=== PATIENT | male | born 2005 | race American Indian/Alaskan Native ===

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

== ENCOUNTER 2024-04-02 01:32 | Emergency (ER) | payer MEDICAID, OTHER ==
[~2024-04-02] VITALS: Ht 177.8 cm; Wt 59.1 kg
[2024-04-02 01:57] VITALS: BP 101/74; PULSE 96; RESP 16; TEMP 97.8; O2SAT 98
== END 2024-04-02 02:46 ==
LOC: ER 01:32
DX: Z02.89 Encounter for other administrative examinations (principal); M25.562 Pain in left knee; F17.200 Nicotine dependence, unspecified, uncomplicated; V89.2XXA Person injured in unspecified motor-vehicle accident, traffic, initial encounter; Y92.410 Unspecified street and highway as the place of occurrence of the external cause; Y92.89 Other specified places as the place of occurrence of the external cause; Y99.8 Other external cause status
CPT/HCPCS: 99283

== ENCOUNTER 2025-01-01 07:49 | Emergency (ER) | payer SELFPAY ==
[~2025-01-01] VITALS: Ht 332.7 cm; Wt 54.5 kg
--- NOTE | 2025-01-01 08:12 | Physician Documentation ---
History of Present Illness ~ Chief Complaint: 5150 Stated Complaint: 5150 Time Seen by MD: 07:53 Primary Medical Doctor: NONE HPI 19-year-old male presenting with suicidal ideations. Patient states that he has had suicidal thoughts for the past year but it has become extremely worse for the past couple of days. He states that he really needs to talk to somebody and wants help. He reports that his plan would be to maybe slit his own throat or his wrists. No other complaints. 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 CONST: Well developed and well nourished. In no acute distress HENT: Head Atraumatic EYES: Pupils are equal, round and reactive to light. Normal conjunctiva NECK: Normal range of motion. Supple. CARDIO: Normal rate and regular rhythm. No murmurs, rubs, or gallops. S1, S2. PULM/CHEST: No respiratory distress. Lungs clear to auscultation. No wheeze ABD: Soft and nontender. Nondistended. Bowel sounds normal. No guarding. : Exam deferred MSK: No edema. No deformity. NEURO: Alert and oriented to person, place and time. Moving all extremities SKIN: Warm and dry. PSYCH: Depressed and anxious mood. Endorses suicidal ideations with plan. Progress Results/Orders Results/Orders Orders - PIEDAD MURCIA MD Med Rec (01/01/25 07:52) Close Observation Level (01/01/25 07:52) Covid19 Binax Poc Result Entry (01/01/25 07:52) 1799.11 (01/01/25 ) General Nursing Order (01/01/25 ) Chlam/Gc Amp Ur (01/02/25 00:00) Hand, Complete (3vw Min) (01/02/25 08:22) Completed Orders - PIEDAD MURCIA MD Cbc/Diff (01/01/25 07:52) Drug Screen, Urine (01/01/25 07:52) Ethanol (01/01/25 07:52) TSH (01/01/25 07:52) BMP (01/01/25 07:52) Regular Diet (01/01/25 Lunch) Ua With Microscopic (01/01/25 08:12) Potassium Cl Sr Tablet (K-Dur Tablet) (01/01/25 11:08) Cult Urine + [place] Ct (01/01/25 11:09) Ethanol (01/01/25 12:47) Ibuprofen Tablet (Motrin Tablet) (01/01/25 16:05) Hand, Complete (3vw Min) (01/02/25 08:22) Vital Signs 01/01/25 01/01/25 01/02/25 01/02/25 07:51 11:19 00:53 06:07 Temp 98.0 98.2 Pulse 135 67 Resp 16 16 16 B/P (MAP) 132/88 121/59 (79) Pulse Ox 98 98 O2 Flow Rate 0 01/02/25 01/02/25 01/02/25 01/02/25 07:55 19:03 19:10 20:04 Temp 97.7 97.7 Pulse 76 76 Resp 16 12 12 12 B/P (MAP) 116/70 (85) 116/70 Pulse Ox 98 98 Laboratory Tests Test 01/01/25 07:54 01/01/25 08:12 01/01/25 08:33 01/01/25 13:06 SARS-CoV-2 Antigen (Rapid) Negative Urine Specimen Description Cln catch midstream Urine Color Yellow Urine Clarity Clear Urine pH 6.0 Urine Specific Gordon 1.020 Urine Protein Negative Urine Glucose (UA) Negative Urine Ketones Trace H Urine Occult Blood Trace-intact Urine Nitrite Negative Urine Bilirubin Negative Urine Urobilinogen 0.2 Urine Leukocyte Esterase Moderate H Urine RBC 0-2 Urine WBC 30-50 H Urine Squamous Epithelial Cells None seen Urine Bacteria Few Urine Mucus None seen Volume Urine Centrifuged 4 ml Urine Comment Low volume Urine Opiates Screen Negative Urine Methadone Screen Negative Urine Fentanyl Screen Negative Urine Barbiturates Screen Negative Urine Phencyclidine Screen Negative Urine Amphetamines Screen Negative Urine Benzodiazepines Screen Negative Urine Cocaine Screen Negative Urine Cannabinoids Screen Negative Drug Screen Comment White Blood Count 9.1 Red Blood Count 4.86 Hemoglobin 14.9 Hematocrit 42.9 Mean Corpuscular Volume 88.3 Mean Corpuscular Hemoglobin 30.7 Mean Corpuscular Hemoglobin Concent 34.8 Red Cell Distribution Width 14.1 Platelet Count 236 Mean Platelet Volume 9.1 Neutrophils (%) (Auto) 75.5 H Lymphocytes (%) (Auto) 18.4 L Monocytes (%) (Auto) 5.6 Eosinophils (%) (Auto) 0.2 Basophils (%) (Auto) 0.3 Neutrophils # (Auto) 6.9 Lymphocytes # (Auto) 1.7 Monocytes # (Auto) 0.5 Eosinophils # (Auto) 0.0 Basophils # (Auto) 0.0 CBC Comment Sodium Level 140 Potassium Level 3.2 L Chloride Level 105 Carbon Dioxide Level 21.6 L Anion Gap 13 Blood Urea Nitrogen 7 Creatinine 0.74 Estimated GFR/1.73 m2 > 90 BUN/Creatinine Ratio 9.5 L Glucose Level 101 Calcium Level 8.4 L Albumin 4.3 Thyroid Stimulating Hormone (TSH) 1.88 Chemistry Comments Ethyl Alcohol Level 154 H 90 H Test 01/02/25 00:00 Microbiology Date/Time Source Procedure Growth Status 01/01/25 08:12 Urine Clean Catch Midstream Urine Culture - Final MIXED ADAN ISOLATED.... Complete EKG/XRAY/CT/US/VASC/MRI Bone/Soft Tissue X-Ray (Ext.) : Additional Comment Indication: Left hand pain Technique: DI HAND, COMPLETE (3VW MIN)HAND 3VW Comparison: None FINDINGS/IMPRESSION: No radiographic evidence for acute fracture or dislocation. No significant soft tissue edema. No radiopaque foreign body. Old ulnar styloid fracture. Old fracture fragment at the base of the 5th proximal phalanx measuring 2 mm Medical Decision Making Differential Diagnosis This is a 19-year-old male presenting with suicidal ideations. The patient was slightly intoxicated with an elevated EtOH of 154. He was observed and on repeat his ETOH improved to less than 100. Additionally he did have some leukocyte esterase and WBCs present on his urinalysis but he is not having any urinary symptoms at this time. I did order a GC/chlamydia test as well as a urine culture to follow this up. In the meantime however he is medically cleared. He is now clinically sober and medically cleared for psychiatric evaluation. 01/02/25: I took over care once again of this patient the following day. The patient is a waiting placement to the mental health unit. He did report some pain in his left hand and thus we ordered an x-ray to rule out fracture in the x-ray was negative. He remained otherwise stable throughout my shift. Departure Disposition: 30 STILL A PATIENT Impression: Primary Impression: Suicidal ideation Referrals: NO PRIMARY CARE PROVIDER (PCP) Signature Scribe Signature: 1 Attestation: 1 PIEDAD MURCIA MD Jan 01, 2025 08:12
[2025-01-01 08:31] LABS: LEUKOCYTE ESTERASE ,URINE MODERATE (Neg); NITRITES, URINE NEGATIVE (Neg); OCCULT BLOOD,URINE TRACE-INTACT (Neg)
[2025-01-01 08:35] LABS: UA COLLECTION TYPE CLN CATCH MIDSTREAM
[2025-01-01 08:36] LABS: MUCUS STRANDS NONE SEEN /LPF (Neg); SQUAMOUS EPITHELIAL CELL,UR NONE SEEN /LPF (FEW)
[2025-01-01 08:42] LABS: URINE AMPHETAMINE SCREEN NEGATIVE (Neg); URINE BARBITUATE SCREEN NEGATIVE (Neg); URINE BENZODIAZEPINES SCREEN NEGATIVE (Neg); URINE CANNABINOID SCREEN NEGATIVE (Neg); URINE COCAINE SCREEN NEGATIVE (Neg); URINE METHADONE SCREEN NEGATIVE (Neg); URINE OPIATE SCREEN NEGATIVE (Neg); URINE PHENCYCLIDINE SCREEN NEGATIVE (Neg)
[2025-01-01 08:44] LABS: MEAN PLATELET VOLUME 9.1 FL (7.4-10.4); RED CELL DISTRIBUTION WIDTH 14.1 % (11.5-14.5)
[2025-01-01 09:06] LABS: CREATININE 0.74 MG/DL (0.60-1.10); ETHANOL 154 MG/DL (<10); TOTAL CARBON DIOXIDE 21.6 MMOL/L (24-32); eCRCL 122 ML/MIN; eGFR > 90 ML/MIN
[2025-01-01] MEDS: potassium Cl 20 mEq SR tablet PO STA (11:15)
[2025-01-01] MEDS: ibuprofen tablet 400 MG TABLET PO ONE (16:13)
--- NOTE | 2025-01-02 08:47 | RADIOLOGY REPORT ---
Indication: Left hand pain Technique: DI HAND, COMPLETE (3VW MIN)HAND 3VW Comparison: None FINDINGS/IMPRESSION: No radiographic evidence for acute fracture or dislocation. No significant soft tissue edema. No rad iopaque foreign body. Old ulnar styloid fracture. Old fracture fragment at the base of the 5th proximal phalanx measuring 2 mm
[2025-01-02 20:04] VITALS: BP 116/70; PULSE 76; RESP 12; TEMP 97.7; O2SAT 98
== END 2025-01-02 20:11 ==
LOC: ER 07:49
DX: R45.851 Suicidal ideations (principal); M79.642 Pain in left hand; Z79.899 Other long term (current) drug therapy; Z20.822 Contact with and (suspected) exposure to COVID-19
CPT/HCPCS: 36415; 73130; 80048; 80305; 80320; 81001; 84443; 85025; 87088; 87491; 87811; 99285

== ENCOUNTER 2025-02-09 05:19 | Emergency (ER) | payer OTHER ==
[~2025-02-09] VITALS: Ht 170.2 cm; Wt 55.0 kg
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
--- NOTE | 2025-02-09 05:59 | ELECTROCARDIOGRAPH REPORT ---
[facility] Test Date: 2025-02-09 Test Time: 05:57:37 Pat Name: FREDDIE RAMIREZ Department: [facility]- Patient ID: [facility]-[id number] Room: Gender: M [employer]: : 2005 Requested By: MINDA TATE Order Number: [id number] Reading MD: Measurements Intervals Mcdonough Rate: 105 P: 77 NV: 126 QRS: 78 QRSD: 81 T: 54 QT: 301 QTc: 398 Interpretive Statements Sinus tachycardia Probable left atrial enlargement RSR' in V1 or V2, probably normal variant Baseline wander in lead(s) I,III,aVL Please click the below link to view image of tracing.
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
[2025-02-09 06:24] VITALS: TEMP 98.4
--- NOTE | 2025-02-09 06:38 | RADIOLOGY REPORT ---
CHEST RADIOGRAPH Indication: cp Technique: Single frontal view of the chest was obtained COMPARISON: None FINDINGS: Lines and Tubes: None Lungs: Clear Pleura: No effusion. No pneumothorax. Cardiomediastinal contours: Unremarkable Bones: Unremarkable IMPRESSION: 1. No acute disease.
[2025-02-09] MEDS ORDERED: iohexol 300mg/ml 100ml inj. ONE ×2 (07:09→07:10)
[2025-02-09] MEDS ORDERED: diatr meglu/diatrizoate 30ml oral sol.-(3 dose) bottle ONE (07:09)
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
[2025-02-09] MEDS: HYDROmorphone inj. 0.5 MG/0.5 ML DISP.SYRIN IV ONE (09:30)
[2025-02-09] MEDS: ondansetron/PF 4mg/2ml inj IV ONE (09:30)
[2025-02-09] MEDS: piperacillin/tazo 3.375gm/50ml 50 ML IV STA (09:47)
[2025-02-09 10:26] VITALS: BP 115/56; PULSE 88; RESP 16; O2SAT 97
== END 2025-02-09 10:28 | disposition short-term general hospital (02) ==
LOC: ER 05:19
DX: J98.2 Interstitial emphysema (principal); Y04.8XXA Assault by other bodily force, initial encounter; Y93.89 Activity, other specified; Y92.89 Other specified places as the place of occurrence of the external cause; Y99.8 Other external cause status
CPT/HCPCS: 70450; 71045; 71260; 72125; 93005; 96365; 96375; 99285; J1171; J2405; J2543; Q9963; Q9967